=== PATIENT | male | born 1945 | race Caucasian/White ===

== ENCOUNTER 2020-06-21 17:36 | Inpatient (IN) | payer MEDICARE ==
[~2020-06-21] VITALS: Ht 172.7 cm; Wt 79.8 kg
--- NOTE | 2020-06-21 17:50 | NUR ---
PT LEON FROM [facility]. PER EMS PT WAS MOVING WEIGHTS ON 06/17 AND HURT HIS LEG. PER EMS LEFT FEMORAL HEAD FX. PT RESTING IN [facility] AT THIS TIME, MONITORING IN PLACE. PT STATES PAIN IS 2/10 WHEN NOT MOVING, BUT 9/10 PAIN WHEN HE MOVES AT ALL. PT HAS METASTATIC CANCER. PT RECEIVED DILAUDID 2MG, FENTANYL 200MCG, AND ZOFRAN 4MG EN ROUTE. PER PT NO NEEDS AT THIS TIME, WILL CONTINUE TO MONITOR.
[2020-06-21] MEDS ORDERED: SODIUM CHLORIDE FLUSH 10ML SYR IVF PRN (19:30)
--- NOTE | 2020-06-21 19:42 | NUR ---
TASK RN: PT RESTING ON [facility]. FALL PRECAUTIONS IN PLACE.
[2020-06-21] MEDS ORDERED: SIMV20TA PO (19:52)
[2020-06-21] MEDS ORDERED: HYPR10GE5 OP (19:52)
[2020-06-21] MEDS ORDERED: BIMA2.5D OP (19:52)
[2020-06-21] MEDS ORDERED: LISI-170 PO (19:52)
[2020-06-21] MEDS ORDERED: BRIM5DRO2 OP (19:52)
[2020-06-21] MEDS ORDERED: PROP10DR3 OP (19:52)
[2020-06-21] MEDS ORDERED: OLAP150T PO (19:52)
[2020-06-21] MEDS ORDERED: PROP10DR2 OP (19:52)
--- NOTE | 2020-06-21 19:54 | NUR ---
MED REC DONE.
--- NOTE | 2020-06-21 20:43 | NUR ---
PT RESTING IN [facility] AT THIS TIME, MONITORING IN PLACE. WILL CONTINUE TO MONITOR.
--- NOTE | 2020-06-21 20:51 | NUR ---
HOSPITAL BED REQUESTED FOR COMFORT OF PATIENT.
[2020-06-21] MEDS ORDERED: ACETAMINOPHEN 325 MG TABLET PO PRN (21:00)
[2020-06-21] MEDS ORDERED: morphine SULFATE 10 MG/ML, 1ML IVPush PRN (21:00)
[2020-06-21] MEDS ORDERED: ONDANSETRON 2MG/ML, 2ML IVPush PRN (21:00)
[2020-06-21] MEDS ORDERED: TRAZODONE 50MG TABLET PO PRN (21:00)
[2020-06-21] MEDS ORDERED: ENALAPRILAT 1.25 MG/ML, 2ML IVPush PRN (21:00)
[2020-06-21] MEDS: LACTATED RINGERS 1,000 ML IV SCH (21:00)
[2020-06-21] MEDS ORDERED: OXYcodone/APAP 5/325MG TABLET ONE (22:29)
[2020-06-21] MEDS: OXYcodone/APAP 5/325MG TABLET PO PRN (22:32)
[2020-06-22 02:00] VITALS: BP 128/73
[2020-06-22] MEDS: OXYcodone/APAP 5/325MG TABLET PO PRN ×3 (02:26→21:36)
[2020-06-22 05:00] LABS: BASOPHILS % (AUTO) 0 % (0-1); EOSINOPHILS % (AUTO) 2 % (1-7); LYMPHOCYTES % (AUTO) 9 % (22-44); MEAN CORPUSCULAR HEMOGLOBIN 34.8 pg (27.5-34.5); MEAN PLATELET VOLUME 7.3 fL (7.4-10.4); MONOCYTES % (AUTO) 10 % (2-9); NEUTROPHILS % (AUTO) 79 % (42-75); PLATELET COUNT 201 x10^3/uL (130-400); RED BLOOD COUNT 2.68 x10^6/uL (4.38-5.82); RED CELL DISTRIBUTION WIDTH 20.5 % (9.4-14.8)
[2020-06-22 05:01] LABS: MD NO
[2020-06-22 05:10] LABS: INTERNATIONAL NORMALIZED RATIO 1.06 (0.93-1.1); PROTHROMBIN TIME 11.2 Seconds (9.6-11.5)
[2020-06-22 05:12] LABS: ALBUMIN 3.1 g/dL (3.4-5.0); ANION GAP 9 mmol/L (5-15); CALCIUM 7.4 mg/dL (8.5-10.1); CHLORIDE 109 mmol/L (98-107)
[2020-06-22 05:14] LABS: ALANINE AMINOTRANSFERASE 18 U/L (12-78); ALKALINE PHOSPHATASE 160 U/L (45-117); BILIRUBIN,TOTAL 0.6 mg/dL (0.2-1.0); CREATININE 0.81 mg/dL (0.7-1.3); TOTAL PROTEIN 6.4 g/dL (6.4-8.2)
[2020-06-22] MEDS: LACTATED RINGERS 1,000 ML IV SCH ×2 (06:28→17:33)
[2020-06-22 08:22] VITALS: BP 101/57
[2020-06-22] MEDS: SENNA/DOCUSATE TABLET PO SCH (09:00)
[2020-06-22 13:09] VITALS: BP 104/45
[2020-06-22 19:00] VITALS: BP 105/59
[2020-06-23] MEDS: OXYcodone/APAP 5/325MG TABLET PO PRN ×4 (01:35→20:53)
[2020-06-23 01:36] VITALS: BP 127/63
[2020-06-23] MEDS: LACTATED RINGERS 1,000 ML IV SCH ×3 (02:49→20:53)
[2020-06-23 06:38] VITALS: BP 131/72
[2020-06-23] MEDS: SENNA/DOCUSATE TABLET PO SCH (09:35)
[2020-06-23 13:20] VITALS: BP 156/72
[2020-06-23 21:02] VITALS: BP 113/68
[2020-06-24] MEDS: OXYcodone/APAP 5/325MG TABLET PO PRN ×3 (02:06→23:52)
[2020-06-24 02:12] VITALS: BP 147/74
[2020-06-24 06:09] LABS: CHLORIDE 112 mmol/L (98-107)
[2020-06-24 06:13] LABS: ANION GAP 5 mmol/L (5-15); CALCIUM 7.3 mg/dL (8.5-10.1); CREATININE 0.73 mg/dL (0.7-1.3)
[2020-06-24 06:34] LABS: BASOPHILS % (AUTO) 0 % (0-1); EOSINOPHILS % (AUTO) 2 % (1-7); LYMPHOCYTES % (AUTO) 14 % (22-44); MEAN CORPUSCULAR HEMOGLOBIN 34.7 pg (27.5-34.5); MEAN CORPUSCULAR HGB CONC 34.6 g/dL (33.2-36.2); MEAN PLATELET VOLUME 7.3 fL (7.4-10.4); MONOCYTES % (AUTO) 14 % (2-9); NEUTROPHILS % (AUTO) 69 % (42-75); PLATELET COUNT 170 x10^3/uL (130-400); RED BLOOD COUNT 2.65 x10^6/uL (4.38-5.82); RED CELL DISTRIBUTION WIDTH 20.8 % (9.4-14.8)
[2020-06-24] MEDS: LACTATED RINGERS 1,000 ML IV SCH ×2 (07:14→21:00)
[2020-06-24 07:18] VITALS: BP 127/63
[2020-06-24] MEDS: SENNA/DOCUSATE TABLET PO SCH (07:33)
[2020-06-24 07:35] LABS: MD MORPH REVIEW ONLY
[2020-06-24 07:36] LABS: <PLATELET ESTIMATE> ADEQUATE; <PLT MORPHOLOGY> NORMAL PLT MORPH; ANISOCYTOSIS 1+; POLYCHROMASIA 1+
[2020-06-24 12:05] VITALS: BP 156/77
[2020-06-24] MEDS ORDERED: METOCLOPRAMIDE 5 MG/ML, 2ML IVPush PRN (13:30)
[2020-06-24] MEDS ORDERED: ALBUTEROL SULFATE 2.5 MG/3 ML NPPB PRN (13:30)
[2020-06-24] MEDS ORDERED: FENTANYL PF 100 MCG/2ML IV PRN (13:30)
[2020-06-24] MEDS ORDERED: HALOPERIDOL 5 MG/ML IV PRN (13:30)
[2020-06-24] MEDS ORDERED: METHOCARBAMOL 1,000 MG in DEXTROSE 5% 100 ML IV PRN (13:30)
[2020-06-24] MEDS ORDERED: EPHEDRINE 50 MG/ML, 1ML IVPush PRN (13:30)
[2020-06-24] MEDS ORDERED: EPHEDRINE 50 MG/ML, 1ML IM PRN (13:30)
[2020-06-24] MEDS ORDERED: HYDROmorphone 1 MG/ML, 1ML INJ IVPush PRN (13:30)
[2020-06-24] MEDS ORDERED: DIAZEPAM 5 MG/ML, 2ML IVPush PRN (13:30)
[2020-06-24] MEDS ORDERED: OXYcodone 5 MG/5 ML ORAL.SOL UDC PO PRN ×2 (13:30→18:30)
[2020-06-24] MEDS ORDERED: DIPHENHYDRAMINE 50 MG/ML, 1ML IVPush PRN (13:30)
[2020-06-24] MEDS ORDERED: MEPERIDINE/PF 25MG/0.5ML IVPush PRN (13:30)
[2020-06-24] MEDS ORDERED: hydrALAzine 20 MG/ML, 1ML IV PRN (13:30)
[2020-06-24] MEDS ORDERED: ONDANSETRON 2MG/ML, 2ML IVPush PRN (13:30)
[2020-06-24] MEDS ORDERED: LORazepam 2 MG/ML, 1ML IVPush PRN (13:30)
[2020-06-24] MEDS ORDERED: ACETAMINOPHEN 325 MG TABLET PO PRN ×2 (13:30→18:30)
[2020-06-24] MEDS ORDERED: HYDROcodone/APAP 7.5-325MG/15ML UDC PO PRN ×2 (13:30→18:30)
[2020-06-24] MEDS ORDERED: LABETALOL 5MG/ML, 20ML IV PRN (13:30)
[2020-06-24] MEDS ORDERED: MIDAZOLAM 1 MG/ML, 2ML IV PRN (13:30)
[2020-06-24] MEDS ORDERED: FENTANYL PF 100 MCG/2ML ONE ×3 (13:45→16:56)
[2020-06-24] MEDS ORDERED: LIDOCAINE-MPF 2% ,5ML ONE (13:47)
[2020-06-24] MEDS ORDERED: NEOSPORIN OINT, 15GM ONE (14:21)
[2020-06-24] MEDS ORDERED: TRANEXAMIC ACID 100 MG/ML, 10ML ONE ×2 (14:21)
[2020-06-24] MEDS ORDERED: EPINEPHRINE 1 MG/ML, 1ML ONE (14:26)
[2020-06-24] MEDS ORDERED: KETOROLAC 60 MG/2 ML ONE (14:26)
[2020-06-24] MEDS ORDERED: SODIUM CHLORIDE 0.9% 50 ML ONE (14:26)
[2020-06-24] MEDS ORDERED: ROPIvacaine/PF 0.2%, 20 ML ONE (14:26)
[2020-06-24] MEDS ORDERED: CHLORHEXIDINE 15 ML UDC ONE (14:27)
[2020-06-24] MEDS ORDERED: VANCOMYCIN 1,000 MG ONE (15:44)
[2020-06-24] MEDS ORDERED: SUCCINYLCHOLINE 20 MG/ML, 10ML ONE (16:12)
[2020-06-24] MEDS ORDERED: ONDANSETRON 2MG/ML, 2ML ONE (16:12)
[2020-06-24] MEDS ORDERED: ROCURONIUM 10MG/ML,5ML ONE (16:12)
[2020-06-24] MEDS ORDERED: PROPOFOL 10 MG/ML, 20ML ONE (16:12)
[2020-06-24] MEDS ORDERED: CEFAZOLIN 1,000 MG ONE (16:12)
[2020-06-24] MEDS ORDERED: GLYCOPYRROLATE 0.2MG/1ML, 5ML ONE (16:12)
[2020-06-24] MEDS ORDERED: NEOSTIGMINE 1 MG/ML, 10ML ONE (16:12)
[2020-06-24] MEDS ORDERED: ACETAMINOPHEN 650 MG/20.3 ML UDC ONE (16:56)
[2020-06-24] MEDS ORDERED: OXYcodone 5 MG/5 ML ORAL.SOL UDC ONE (16:57)
[2020-06-24] MEDS ORDERED: DIPHENHYDRAMINE 25 MG CAPSULE PO PRN (18:30)
[2020-06-24] MEDS ORDERED: ONDANSETRON 2MG/ML, 2ML IV PRN (18:30)
[2020-06-24] MEDS: OLAPARIB 150 MG HOMEMEDPO SCH (19:54)
[2020-06-24] MEDS: SIMVASTATIN 20 MG TABLET PO SCH (19:54)
[2020-06-24] MEDS: COMBIGAN OPTHALMIC OP SCH (19:55)
[2020-06-24] MEDS: [UNRECOGNIZED DRUG - OTHER] OP SCH (19:55)
[2020-06-24] MEDS: [UNRECOGNIZED DRUG - OTHER] OP SCH (19:55)
[2020-06-24] MEDS: OLAPARIB 150 MG PO SCH (19:56)
[2020-06-24 20:57] VITALS: BP 113/64
[2020-06-24] MEDS ORDERED: ZOLPIDEM 5MG TABLET PO PRN (21:00)
[2020-06-24] MEDS: SODIUM CHLORIDE FLUSH 10ML SYR IVF SCH (23:56)
[2020-06-24] MEDS: CEFAZOLIN PMX 1GM/50ML 50 ML IVPB SCH (23:56)
[2020-06-25 00:12] VITALS: BP 115/66
[2020-06-25 05:26] VITALS: BP 113/62
[2020-06-25] MEDS: [UNRECOGNIZED DRUG - OTHER] OP SCH ×4 (06:00→21:00)
[2020-06-25 07:00] LABS: BASOPHILS % (AUTO) 0 % (0-1); EOSINOPHILS % (AUTO) 0 % (1-7); LYMPHOCYTES % (AUTO) 11 % (22-44); MD NO; MEAN CORPUSCULAR HEMOGLOBIN 34.3 pg (27.5-34.5); MEAN CORPUSCULAR HGB CONC 34.2 g/dL (33.2-36.2); MEAN PLATELET VOLUME 7.4 fL (7.4-10.4); MONOCYTES % (AUTO) 14 % (2-9); NEUTROPHILS % (AUTO) 76 % (42-75); PLATELET COUNT 161 x10^3/uL (130-400); RED BLOOD COUNT 2.34 x10^6/uL (4.38-5.82); RED CELL DISTRIBUTION WIDTH 20.4 % (9.4-14.8)
[2020-06-25] MEDS: LACTATED RINGERS 1,000 ML IV SCH (07:00)
[2020-06-25 07:04] LABS: ANION GAP 6 mmol/L (5-15); CALCIUM 6.5 mg/dL (8.5-10.1); CHLORIDE 110 mmol/L (98-107); CREATININE 0.76 mg/dL (0.7-1.3)
[2020-06-25 07:05] VITALS: BP 111/64
[2020-06-25] MEDS: COMBIGAN OPTHALMIC OP SCH ×2 (08:18→21:00)
[2020-06-25] MEDS: OLAPARIB 150 MG HOMEMEDPO SCH ×2 (08:18→21:00)
[2020-06-25] MEDS: OLAPARIB 150 MG PO SCH ×2 (08:18→21:00)
[2020-06-25] MEDS: SODIUM CHLORIDE FLUSH 10ML SYR IVF SCH ×2 (08:19→21:54)
[2020-06-25 08:24] LABS: % IRON SATURATION 21 % (20-55); IRON LEVEL 38 mcg/dL (65-175); TOTAL IRON BINDING CAPACITY 183 mcg/dL (250-450)
[2020-06-25] MEDS: LISINOPRIL 20 MG TABLET PO SCH (08:25)
[2020-06-25] MEDS: SENNA/DOCUSATE TABLET PO SCH (08:26)
[2020-06-25] MEDS: CEFAZOLIN PMX 1GM/50ML 50 ML IVPB SCH (08:26)
[2020-06-25] MEDS ORDERED: BIMATOPROST OP SCH (09:00)
[2020-06-25] MEDS ORDERED: POLYETHYLENE GLYCOL 17 GM PACKET PO ONE (10:30)
[2020-06-25] MEDS: CALCIUM CITRATE 950 MG TABLET PO SCH (10:58)
[2020-06-25] MEDS: IRON SUCROSE COMPLEX 100MG/5ML IV SCH (10:59)
[2020-06-25] MEDS: OXYcodone/APAP 5/325MG TABLET PO PRN ×3 (11:02→22:06)
[2020-06-25 12:20] VITALS: BP 130/74
[2020-06-25 20:23] VITALS: BP 98/58
[2020-06-25] MEDS: SIMVASTATIN 20 MG TABLET PO SCH (21:00)
[2020-06-25] MEDS: [UNRECOGNIZED DRUG - OTHER] OP SCH (21:00)
[2020-06-26 03:43] VITALS: BP 114/63
[2020-06-26] MEDS: [UNRECOGNIZED DRUG - OTHER] OP SCH (06:00)
[2020-06-26 06:44] LABS: BASOPHILS % (AUTO) 0 % (0-1); EOSINOPHILS % (AUTO) 1 % (1-7); LYMPHOCYTES % (AUTO) 10 % (22-44); MEAN CORPUSCULAR HEMOGLOBIN 34.4 pg (27.5-34.5); MEAN CORPUSCULAR HGB CONC 34.6 g/dL (33.2-36.2); MEAN PLATELET VOLUME 7.4 fL (7.4-10.4); MONOCYTES % (AUTO) 15 % (2-9); NEUTROPHILS % (AUTO) 74 % (42-75); PLATELET COUNT 159 x10^3/uL (130-400); RED BLOOD COUNT 2.31 x10^6/uL (4.38-5.82); RED CELL DISTRIBUTION WIDTH 20.4 % (9.4-14.8)
[2020-06-26 06:54] LABS: ANION GAP 5 mmol/L (5-15); CHLORIDE 110 mmol/L (98-107); CREATININE 0.84 mg/dL (0.7-1.3)
[2020-06-26] MEDS ORDERED: CALCIUM GLUCONATE 4.6 MEQ/10 ML IVPush ONE (07:30)
[2020-06-26 07:38] LABS: MD SCAN
[2020-06-26 07:43] VITALS: BP 92/55
[2020-06-26] MEDS: SENNA/DOCUSATE TABLET PO SCH (08:17)
[2020-06-26] MEDS: CALCIUM CITRATE 950 MG TABLET PO SCH (08:17)
[2020-06-26] MEDS: IRON SUCROSE COMPLEX 100MG/5ML IV SCH (08:17)
[2020-06-26] MEDS: SODIUM CHLORIDE FLUSH 10ML SYR IVF SCH (08:18)
[2020-06-26] MEDS: LISINOPRIL 20 MG TABLET PO SCH (08:18)
[2020-06-26] MEDS: OLAPARIB 150 MG HOMEMEDPO SCH (08:21)
[2020-06-26] MEDS: COMBIGAN OPTHALMIC OP SCH (08:22)
[2020-06-26] MEDS: OLAPARIB 150 MG PO SCH (08:34)
[2020-06-26] MEDS ORDERED: MAGNESIUM HYDROXIDE 8%, 30ML UDC PO SCH (09:00)
[2020-06-26] MEDS ORDERED: CALCIUM GLUCONATE 4.6 MEQ in SODIUM CHLORIDE 0.9% 100 ML IV ONE (09:00)
[2020-06-26] MEDS ORDERED: MAGNESIUM CITRATE 300ML ORAL SOL PO ONE (09:00)
[2020-06-26] MEDS ORDERED: DOCU-131 PO (09:18)
[2020-06-26] MEDS ORDERED: OXYcodone/APAP 5/325MG PO (09:18)
[2020-06-26] MEDS ORDERED: APIX2.5T PO (09:18)
[2020-06-26 13:22] VITALS: BP 139/67
== END 2020-06-26 13:30 | disposition home or self-care (01) | DRG 522 ==
LOC: ED 19:57 → EDIP 21:36 → 4NE 06-22 01:31 → DCLOUNGE 06-26 13:20
PROVIDERS: ADMIT Hospitalist; ATTEND Internal Medicine
PROC: 0SRS0JA Replacement of Left Hip Joint, Femoral Surface with Synthetic Substitute, Uncemented, Open Approach (ICD-10-PCS; principal; 2020-06-24 14:00)
DX: M84.452A Pathological fracture, left femur, initial encounter for fracture (principal); C79.51 Secondary malignant neoplasm of bone; C75.9 Malignant neoplasm of endocrine gland, unspecified; M84.48XA Pathological fracture, other site, initial encounter for fracture; Z20.828 Contact with and (suspected) exposure to other viral communicable diseases; C07 Malignant neoplasm of parotid gland; C61 Malignant neoplasm of prostate; D50.0 Iron deficiency anemia secondary to blood loss (chronic); E78.5 Hyperlipidemia, unspecified; E83.51 Hypocalcemia; H40.9 Unspecified glaucoma; I10 Essential (primary) hypertension; Z96.649 Presence of unspecified artificial hip joint; Z66 Do not resuscitate; Z80.0 Family history of malignant neoplasm of digestive organs; Z80.8 Family history of malignant neoplasm of other organs or systems; Z85.818 Personal history of malignant neoplasm of other sites of lip, oral cavity, and pharynx; Z86.718 Personal history of other venous thrombosis and embolism; Z92.3 Personal history of irradiation; Z79.899 Other long term (current) drug therapy; Z79.891 Long term (current) use of opiate analgesic
CPT/HCPCS: 36415; 80048; 80053; 83540; 83550; 84100; 85025; 85610; 87070; 87075; 87102; 87176; 87205; 87635; 93005; G0378; J0171; J0610; J0690; J1756; J1885; J2405; J2704; J2710; J2795; J3010; J3370; C1776; J0330; J7120